=== PATIENT | female | born 1980 | race Caucasian/White ===

== ENCOUNTER 2017-03-04 00:24 | Emergency (ER) | payer OTHER ==
[~2017-03-04] VITALS: Ht 172.7 cm; Wt 92.3 kg
[~2017-03-04 00:24] MED LIST: ADVIL200 MG PO; ALEVE220 MG PO; ATIVAN0.5 MG PO; BACTRIM,SEPT1 TABLET PO; BENTYL20 MG PO; BUSPAR10 MG PO; CARAFATE1 GM PO; COLACE100 MG PO; CYCLOBENZAPRINE5 MG PO; ENDOCET 5-3251 EACH PO; ESCITALOPRAM OX20 MG PO; FLUOXETINE HCL10 MG PO; IBUPROFEN800 MG PO; KEFLEX500 MG PO; MIRALAX17 GM PO; Motrin PO; NATALCARE RX1 TABLE1 PO; ONDANSETRON HCL4 MG PO; OXYCODONE HCL5 MG PO; PERCOCET 5/31 TABLET PO; PRILOSEC20 MG PO; PROMETHAZINE HC25 M1 PO; PROZAC20 MG PO; RANITIDINE HCL150 MG PO; TOPAMAX50 MG PO; TOPIRAMATE50 MG PO; TYLENOL EXTRA500 MG PO; ULTRAM50 MG PO; ZANTAC150 MG PO; ZOFRAN ODT4 MG PO; ZOFRAN4 MG PO; ZOLOFT100 MG PO; Zoloft PO
[2017-03-04 01:00] LABS: HEMATOCRIT 38.9 % (36.0-46.0); MCH 30.8 PG (29.0-34.0); MCHC 33.9 G/DL (30.0-36.0); MCV 90.7 FL (83-99); MEAN PLAT.VOLUME 9.7 uM^3 (9.5-12.4); PLATELET COUNT 241 K/uL (156-360); RBC DIS.WIDTH-CV 12.3 % (11.8-14.6); RBC DIS.WIDTH-SD 40.5 % (39-53); RED BLOOD COUNT 4.29 M/uL (3.80-5.20); WHITE BLOOD COUNT 7.7 K/uL (4.1-10.2)
[2017-03-04 01:08] LABS: CHLORIDE 107 mEq/L (99-109); POTASSIUM 3.2 mEq/L (3.7-5.4); SODIUM 138 mEq/L (136-147)
[2017-03-04 01:10] LABS: ADD MIUA? YES; BILIRUBIN NEGATIVE; BLOOD NEGATIVE; COLOR YELLOW ((YELLOW)); GLUCOSE (STRIP) NEGATIVE; KETONES NEGATIVE; LEUKOCYTES TRACE; NITRITE NEGATIVE; PROTEIN (STRIP) NEGATIVE; SPECIFIC GRAVITY 1.016 (1.000-1.030); UROBILINOGEN 0.2 MG/DL (0.2-1.0)
[2017-03-04 01:10] LABS: GLUCOSE 125 mg/dL (70-99)
[2017-03-04 01:12] LABS: ANION GAP 7 MEQ/L (2-14); TOTAL BILIRUBIN 0.7 mg/dL (0.0-1.0)
[2017-03-04 01:14] LABS: ALKALINE PHOSPHATASE 68 IU/L (3-129); GFR ESTIMATE (CALCULATED) > 59 mL/min/
[2017-03-04 01:15] LABS: UREA NITROGEN (BUN) 11 mg/dL (9-23)
[2017-03-04 01:20] LABS: BACTERIA RARE /HPF; EPITHELIAL CELLS 4+ /HPF; MUCUS 1+ /LPF; UCUL ADDED? NO; WHITE BLOOD CELLS 0-5 /HPF (0-5)
[2017-03-04 01:23] LABS: QUANTITATIVE HCG < 4.0 MIU/ML
[2017-03-04 01:29] LABS: AMYLASE 37 IU/L (1-118)
[2017-03-04 01:38] LABS: LIPASE 10 U/L (1.0-51.0)
[2017-03-04] MEDS ORDERED: NAPROSYN500 MG PO (03:19)
[2017-03-04] MEDS ORDERED: BENTYL20 MG PO (03:19)
[2017-03-04 03:37] VITALS: BP 133/88
== END 2017-03-04 03:37 | disposition home or self-care (01) ==
LOC: RME 00:24 → EME 00:24 → RME 03:37
DX: R10.13 Epigastric pain (principal); R10.11 Right upper quadrant pain; E87.6 Hypokalemia; K21.9 Gastro-esophageal reflux disease without esophagitis; F41.9 Anxiety disorder, unspecified; F32.9 Major depressive disorder, single episode, unspecified; G43.909 Migraine, unspecified, not intractable, without status migrainosus; Z90.49 Acquired absence of other specified parts of digestive tract; F17.200 Nicotine dependence, unspecified, uncomplicated; Z88.6 Allergy status to analgesic agent; Z88.5 Allergy status to narcotic agent; Z88.8 Allergy status to other drugs, medicaments and biological substances
CPT/HCPCS: 74177; 80053; 81003; 82150; 83690; 84702; 85027; 99281; 99284; J2405; J3010; J7030

== ENCOUNTER 2017-09-29 03:08 | Emergency (ER) | payer OTHER ==
[~2017-09-29] VITALS: Ht 172.7 cm; Wt 88.6 kg
[~2017-09-29 03:08] MED LIST changes: +NAPROSYN500 MG PO
[2017-09-29 03:52] LABS: BASOPHIL (%) 0.1 % (0-1); EOSINOPHIL (%) 0.1 % (0-5); HEMATOCRIT 33.4 % (36.0-46.0); HEMOGLOBIN 11.5 G/DL (11.9-15.5); IMMATURE GRANULOCYTE (%) 0.3 % (0.0-0.7); LYMPHOCYTE (%) 27.7 % (15-42); MCH 30.8 PG (29.0-34.0); MCHC 34.4 G/DL (30.0-36.0); MCV 89.5 FL (83-99); MONOCYTE (%) 4.6 % (3-12); MONOCYTE COUNT 0.3 K/uL (0-0.8); NEUTROPHIL (%) 67.2 % (45-76); NEUTROPHIL COUNT 4.9 K/uL (1.8-6.4); PLATELET COUNT 207 K/uL (156-360); RBC DIS.WIDTH-CV 12.3 % (11.8-14.6); RBC DIS.WIDTH-SD 40.4 % (39-53); RED BLOOD COUNT 3.73 M/uL (3.80-5.20); WHITE BLOOD COUNT 7.4 K/uL (4.1-10.2)
[2017-09-29 04:02] LABS: ALBUMIN 3.7 g/dL (3.2-4.8); CHLORIDE 107 mEq/L (99-109); POTASSIUM 3.2 mEq/L (3.7-5.4); SODIUM 138 mEq/L (136-147)
[2017-09-29 04:04] LABS: GLUCOSE 108 mg/dL (70-99)
[2017-09-29 04:05] LABS: TOTAL PROTEIN 5.5 g/dL (6.4-8.3)
[2017-09-29 04:06] LABS: TOTAL BILIRUBIN 0.6 mg/dL (0.0-1.0)
[2017-09-29 04:08] LABS: ALKALINE PHOSPHATASE 61 IU/L (3-129); CREATININE 0.6 mg/dL (0.6-1.3); GFR ESTIMATE (CALCULATED) > 59 mL/min/
[2017-09-29 04:09] LABS: UREA NITROGEN (BUN) 12 mg/dL (9-23)
[2017-09-29 04:10] LABS: AST (GOT) 23 IU/L (2-34)
[2017-09-29 04:11] LABS: ALT (GPT) 11 IU/L (3-49); LIPASE 6 U/L (1.0-51.0)
[2017-09-29 04:17] LABS: QUANTITATIVE HCG < 4.0 MIU/ML
[2017-09-29] MEDS ORDERED: PROTONIX40 MG PO (04:17)
[2017-09-29 04:40] VITALS: BP 107/58
== END 2017-09-29 04:41 | disposition home or self-care (01) ==
LOC: EME → EDBD 03:08 → EME 03:08
PROVIDERS: Emergency Medicine
DX: R10.13 Epigastric pain (principal); K21.9 Gastro-esophageal reflux disease without esophagitis; G43.909 Migraine, unspecified, not intractable, without status migrainosus; F41.9 Anxiety disorder, unspecified; F32.9 Major depressive disorder, single episode, unspecified; F17.200 Nicotine dependence, unspecified, uncomplicated; Z90.49 Acquired absence of other specified parts of digestive tract; Z88.6 Allergy status to analgesic agent; Z88.5 Allergy status to narcotic agent; Z88.8 Allergy status to other drugs, medicaments and biological substances
CPT/HCPCS: 80053; 83690; 84702; 85025; 93005; 99281; 99285; J2405; J7030